=== PATIENT | female | born 1995 | race Caucasian/White ===

== ENCOUNTER 2018-07-20 04:27 | Emergency (ER) | payer OTHER | END 2018-07-20 09:52 | disposition home or self-care (01) | LOC: JER 04:27 ==

== ENCOUNTER 2018-07-25 09:21 | Day surgery (SDC) | payer OTHER ==
[2018-07-24 10:34] VITALS: BMI 31.4
--- NOTE | 2018-07-25 09:46 | HP ---
History & Physical Update - History History: No Change - Physical Physical: No Change - Assessment Assessment: No Change - Plan Plan: No Change (Cholelithiasis, cholecystitis. plan : laparoscopic cholecystectomy , possible open.)
[2018-07-25] MEDS ORDERED: LIDOCAINE HCL/PF 2% SDV 5ML VIAL ONE (10:55)
[2018-07-25] MEDS ORDERED: ROCURONIUM BROMIDE 50 MG/5 ML VIAL ONE (10:55)
[2018-07-25] MEDS ORDERED: ceFAZolin SODIUM 1 GM VIAL ONE (10:55)
[2018-07-25] MEDS ORDERED: MIDAZOLAM HCL 2 MG/2 ML SINGLE DOSE VIAL ONE (10:55)
[2018-07-25] MEDS ORDERED: fentaNYL CITRATE 250 MCG/5 ML VIAL ONE (10:55)
[2018-07-25] MEDS ORDERED: PROPOFOL 20 ML ONE ×2 (10:55)
[2018-07-25] MEDS ORDERED: BUPIVACAINE HCL/PF 0.5% (5MG/ML) 10 ML VIAL ONE (11:21)
[2018-07-25] MEDS ORDERED: ceFAZolin SODIUM 1 GM VIAL IVPB ONE (11:21)
[2018-07-25] MEDS ORDERED: GLYCOPYRROLATE 0.2 MG/1 ML VIAL ONE (11:33)
[2018-07-25] MEDS ORDERED: NEOSTIGMINE METHYLSULFATE 0.5 MG/ML - 10 ML MDV ONE (11:33)
[2018-07-25] MEDS ORDERED: DEXAMETHASONE SOD PHOSPHATE 4 MG/1 ML VIAL ONE (11:33)
[2018-07-25] MEDS ORDERED: BUPIVACAINE HCL/PF (5 MG/ML) 30 ML VIAL IJ ONE (12:47)
[2018-07-25] MEDS ORDERED: KETOROLAC TROMETHAMINE 30 MG/1 ML VIAL ONE (12:52)
--- NOTE | 2018-07-25 13:34 | OP ---
Operative Note - Note: Operative Date: 07/25/18 Pre-Operative Diagnosis: Cholelithiasis, cholecystitis. Operation: Laparoscopic cholecystectomy, lysis of omental adhesions. Findings: Long gallbladder with multiple stones. Prominent lingular segment of the liver. Post-Operative Diagnosis: Same as Pre-op Surgeon: [employer] Professional: Marisa Lebron Anesthesiologist/PAINTER DRUM: Jenna Morejon Anesthesia: General Specimens Removed: Gallbladder with calculii. Estimated Blood Loss (mls): 10 Operative Report Dictated: Yes
[2018-07-25] MEDS ORDERED: oxyCODONE HCL 5 MG TABLET PO PRN (13:42)
[2018-07-25] MEDS ORDERED: ONDANSETRON 4 MG/2 ML VIAL IVPUSH PRN (13:42)
[2018-07-25] MEDS ORDERED: ACETAMINOPHEN 1000 MG/100 ML VIAL (NON FORMULARY) IVPB PRN (13:43)
[2018-07-25] MEDS ORDERED: LACTATED RINGERS SOLUTION 1,000 ML IV SCH (13:45)
--- NOTE | 2018-07-25 13:57 | SURG ---
Surgery Storekeeper Engineering Note Storekeeper Engineering: Marisa Lebron PA-C Date of Service: 07/25/18 Diagnosis: Cholelithiasis, cholecystitis. . Procedure: Laparoscopic cholecystectomy, lysis of omental adhesions I was present for the entirety of the operative procedure. For further detail, please refer to operative report. Visit type - Case Type Case Type: Scheduled - Emergency Emergency Visit: No - New patient This patient is new to me today: Yes Date on this admission: 07/25/18
[2018-07-25] MEDS ORDERED: ACETAMINOPHEN 1000 MG/100 ML VIAL (NON FORMULARY) IVPB ONE (14:00)
[2018-07-25] MEDS ORDERED: ACETAMINOPHEN INJECTION 100 ML IVPB ONE (14:05)
[2018-07-25 17:25] VITALS: BP 127/79; PULSE 89; TEMP 97.9
--- NOTE | 2018-07-26 08:12 | OP ---
DATE OF OPERATION: DATE OF DICTATION: 07/25/2018 PREOPERATIVE DIAGNOSES: Cholelithiasis, acute cholecystitis. POSTOPERATIVE DIAGNOSES: Cholelithiasis with cholecystitis and omental adhesions. OPERATIVE PROCEDURE: Laparoscopic cholecystectomy, lysis of omental adhesions. SURGEON: Sukhjinder Dyer MD LOG PREPARER: PASTOR Alicea ANESTHESIA: General anesthesia. ANESTHESIOLOGIST: SANTIAGO Oliva OPERATIVE DESCRIPTION: This 23-year-old woman was brought in for laparoscopic cholecystectomy. She had recurrent pain in the right upper quadrant. Consent was obtained. Risks, benefits, and complications were discussed with the patient. Patient brought to the operating room. General anesthesia was administered. Timeout was called. She was given antibiotics prior to the procedure. The abdomen was painted and draped. An incision was made in the infraumbilical portion of the umbilicus, which was deepened to incise the skin, subcutaneous tissue, and the linea alba. The peritoneum was incised, and a 10- to 12-mm laparoscopic trocar of the Katey type was inserted into the abdominal cavity. The abdomen was insufflated with carbon dioxide at 6 L/min, with maximum intra-abdominal pressure 15 mmHg. A 5-mm camera was introduced into the abdominal cavity. Two 2-0 Vicryl stay sutures were obtained on either side of the midline to anchor the trocar to the abdominal cavity. Under direct vision, two 5-mm trocars were inserted in the right upper quadrant of the abdomen, 1 along the midclavicular line, another along the anterior axillary line after making a small skin incision. These trocars were noted entering the abdominal cavity under direct vision of the camera. A 3rd trocar was introduced in the midline in the subxiphoid area entering the abdominal cavity to the right of the falciform ligament. This was also visualized with the camera entering the abdominal cavity. The gallbladder was then visualized, and the fundus of the gallbladder was grasped with a grasper through the lateral 5-mm port. The gallbladder was then retracted cephalad and laterally to visualize the rest of the body of the gallbladder. The omental adhesions to the gallbladder were lysed all the way to the infundibulum of the gallbladder. There was a large stone in the infundibulum of the gallbladder. This was grasped with another grasper and retracted inferiorly and laterally to expose the Calot's triangle. There was a large lingular segment of the liver which was floating freely and covering the body of the gallbladder. This was retracted as the dissection proceeded. The peritoneal reflection around the cystic duct was incised with an Endo Yoly through the subxiphoid port. The cystic duct and cystic artery were isolated circumferentially and dissected free. These were then divided between clips. Gallbladder was then retracted, and the peritoneal reflection on either side of the gallbladder was then incised 2-3 mm from the edge of the liver. The gallbladder was then dissected off the gallbladder bed all the way to the fundus of the gallbladder. The central portion of the body of the gallbladder was covered with the lingular segment, making this dissection obscured by the lingular segment of the liver. Cholecystectomy was accomplished. The large stones within the gallbladder were then retrieved out through the Endo Catch introduced through the umbilical port. The gallbladder anatomy was observed and was normal,with multiple stones within the gallbladder. The gallbladder bed was thoroughly irrigated with normal saline. All the fluid return was clear. There was no bleeding. The instruments were then withdrawn under direct vision. The linea alba at midline was approximated with interrupted and [id number] 2-0 Vicryl sutures. Marcaine 0.5% was injected into the wound. The skin was approximated with buried interrupted 4-0 Monocryl sutures. Sponge count and instrument count were correct. Estimated blood loss was 10-15 mL. Patient tolerated the procedure well, was extubated, and sent to the recovery room in satisfactory and stable condition. Wilbur [id number] MTDD
--- NOTE | 2018-07-29 10:25 | PATH ---
Surgical Pathology Report Patient Name: LAURA DOMINGO [facility]. Rec. #: [id number] /Age/Gender: 1995 (Age: 23) / F Account: [id number] Location: [facility] SURGICAL Taken: 07/25/2018 Received: 07/28/2018 Reported: 07/29/2018 Physicians: Sukhjinder Dyer M.D. Specimen(s) Received GALLBLADDER Clinical History Cholelithiasis/cholecystitis Final Diagnosis GALLBLADDER, CHOLECYSTECTOMY: CHRONIC CHOLECYSTITIS AND CHOLELITHIASIS. Electronically Signed Calvin Chu M.D. Gross Description Received in formalin, labeled "gallbladder," is an 8.0 x 2.1 x 1.1 cm. gallbladder with a 0.2 cm. in length portion of cystic duct attached. The outer surface is sun-maharaj with a focal defect in the fundus and varies from smooth to shaggy. The lumen contains a abundant yellow, spherical choleliths ranging from 0.2-1.7 cm in greatest dimension. The mucosa is green-brown and velvety. The wall of the gallbladder averages 0.1 cm. in thickness. Director Of [employer] sections are submitted in one cassette. /07/28/2018 saudi07/28/2018
== END 2018-07-25 17:30 | disposition home or self-care (01) ==
LOC: JASU-SURG 09:21 → JOR 09:21 → JASU-SURG 17:30
PROVIDERS: ATTEND Specialist
PROC: 0FT44ZZ Resection of Gallbladder, Percutaneous Endoscopic Approach (ICD-10-PCS; principal; 2018-07-25 11:00)
DX: K80.00 Calculus of gallbladder with acute cholecystitis without obstruction (principal)
CPT/HCPCS: 84703; 88304-TC; 94760; J0131

== ENCOUNTER 2021-04-05 21:09 | Emergency (ER) | payer OTHER ==
[2021-04-05 21:18] VITALS: BP 129/81; PULSE 75; TEMP 97.9; BMI 28.0
[2021-04-05] MEDS ORDERED: LIDOCAINE PATCH REMOVAL MC SCH (22:00)
[2021-04-05 22:56] LABS: PH,URINE 6.5 (5.0-8.0); URINE APPEARANCE CLEAR; URINE BILIRUBIN NEGATIVE (NEGATIVE); URINE COLOR YELLOW; URINE GLUCOSE (UA) NEGATIVE (NEGATIVE); URINE KETONE NEGATIVE (NEGATIVE); URINE LEUK ESTERASE NEGATIVE (NEGATIVE); URINE NITRITE NEGATIVE (NEGATIVE); URINE PROTEIN NEGATIVE (NEGATIVE); URINE UROBILINOGEN 0.2 mg/dL (0.2-1.0)
[2021-04-05] MEDS ORDERED: ACETAMINOPHEN 500 MG TABLET (FP) PO ONE (22:56)
[2021-04-05] MEDS ORDERED: LIDOCAINE 5% TOPICAL PATCH TP ONE (22:57)
[2021-04-05] MEDS ORDERED: LIDOCAINE 5% TOPICAL PATCH ONE (23:02)
[2021-04-05] MEDS ORDERED: ACETAMINOPHEN 500 MG TABLET (FP) ONE (23:03)
== END 2021-04-06 00:19 | disposition home or self-care (01) ==
LOC: JER 21:09
DX: M54.6 Pain in thoracic spine (principal)
CPT/HCPCS: 81003; 87086; 99283-25